=== PATIENT | female | born 1935 | race Caucasian/White ===

== ENCOUNTER 2025-09-02 13:18 | Emergency (ER) | payer MEDICARE, OTHER, SELFPAY ==
[2025-09-02 13:40] VITALS: BP 142/57; PULSE 94; RESP 16; TEMP 36.8; O2SAT 97
[2025-09-02 14:09] LABS: EDCOVIDSCREEN Negative (Negative); EDINFLUASCREEN Negative (Negative); EDINFLUBSCREEN Negative (Negative)
--- NOTE | 2025-09-02 14:18 | ED_ITS ---
HPI - URI/Sore Throat General Chief Complaint: Upper Respiratory Infection Stated Complaint: teary eyes, sinus Time Seen by Provider: 09/02/25 14:19 Source: patient Mode of arrival: ambulatory Limitations: no limitations History of Present Illness HPI Narrative: 89 yo F presents with c/o nasal congestion, sinus pain/pressure, fatigue for 1 wk. L eye erythematous and draining for 3 days. Afebrile. All systems reviewed and negative except as noted above. Related Data Home Medications ?Medication ?Instructions ?Recorded ?Confirmed ?Last Taken ?Type chlorthalidone 25 mg tablet mg 09/02/25 Unknown Histo ry evolocumab 140 mg/mL subcutaneous mg subcut 09/02/25 Unknown History pen injector (Repatha SureClick) ipratropium bromide 21 mcg (0.03 intranasal 09/02/25 Unknown History %) nasal spray levothyroxine 50 mcg tablet mcg 09/02/25 Unknown Hist ory lisinopril 40 mg tablet mg 09/02/25 Unknown History Allergies Allergy/AdvReac Type Severity Reaction Status Date / Time Sulfa (Sulfonamide Allergy Intermediate Hives Verified 09/02/25 13:43 Antibiotics) [facility] Comments At time of signature, agree with nursing past medical, surgical, social and family history. There is no relevant family history pertinent to the presenting complaint. Exam Narrative: GENERAL: This is a well-nourished, well-developed patient, in no apparent distress. HEAD: normocephalic, atraumatic. EYES: PERRL. left sclera and conjunctiva erythematous, purulent drainage noted. Right normal. Vision is grossly intact. EARS: External ears normal, auditory canals clear and without drainage, TMs normal without perforation. Hearing grossly intact. NOSE: External nose normal with purulent nasal drainage, erythema and swelling to nares, maxillary sinus tenderness on palpation THROAT: Mucous membranes moist, Erythematous with clear nasal drainage NECK: Neck supple, non-tender without lymphadenopathy, masses or thyromegaly. CARDIOVASCULAR: Regular rate and rhythm without murmurs, gallops, or rubs. RESPIRATORY: Clear to auscultation. Breath sounds equal bilaterally. No wheezes, rales, or rhonchi. SKIN: warm, Dry, intact with no suspicious lesions or rash, good texture and turgor. NEURO: awake, alert, and oriented to person, place and time. There were no obvious focal neurologic abnormalities. EXTREMITIES: No joint tenderness, effusion, or edema noted. Course Course Level of Care: Express Care Visit Vital Signs Vital signs: Vital Signs Temperature 36.8 C 09/02/25 13:40 Pulse Rate 94 09/02/25 13:40 Respiratory Rate 16 09/02/25 13:40 Blood Pressure 142/57 H 09/02/25 13:40 Pulse Oximetry 97 09/02/25 13:40 Temperature 36.8 C 09/02/25 13:40 Pulse Rate 94 09/02/25 13:40 Respiratory Rate 16 09/02/25 13:40 Blood Pressure 142/57 H 09/02/25 13:40 Pulse Oximetry 97 09/02/25 13:40 Reviewed MDM MDM Narrative Medical decision making narrative: will treat patient for bacterial sinusitis due to duration of symptoms and exam findings. Patient is alert, nontoxic. Differential Diagnosis Differential Diagnosis: Differential diagnostic considerations for upper respiratory infection include upper respiratory infection, croup, otitis media, sinusitis, viral infection, bronchitis, influenza, pharyngitis, strep, uvulitis.? Lab Data Labs: Lab Results 09/02/25 Range/Units 14:05 POC Influenza A Ag Negative (Negative) POC Influenza B Ag Negative (Negative) POC SARS CoV-2 Ag Negative (Negative) Discharge Plan Discharge Clinical Impression: Acute bacterial sinusitis, Acute bacterial conjunctivitis of left eye Patient Disposition: Home Condition: Stable Instructions: Antibiotic Form, Sinusitis (ED) Additional Instructions: take antibiotic as prescribed until gone. Start [id number] Flonase and use as directed on packaging. Wash hands before and after placing eyedrops. Follow-up with your primary care physician if symptoms are not improving. Patient Language: Guatemalan Prescriptions: New doxycycline hyclate 100 mg capsule 100 mg PO BID 7 Days Qty: 14 0RF ofloxacin 0.3 % drops See Rx Instructions EACH EYE .COMPLEX Qty: 5 0RF Rx Instructions: put 1 drop into affected eye(s) every 4 hr x 2 days, then 1 drop 4 times a day for 7 days No Action chlorthalidone 25 mg tablet levothyroxine 50 mcg tablet lisinopril 40 mg tablet ipratropium bromide 21 mcg (0.03 %) spray,non-aerosol INTRANASAL Repatha SureClick 140 mg/mL pen injector SUBCUT Follow-up/Referrals: PHYSICIAN,ELECTRIC POWER MACHINE OPERATOR [Primary Care Provider, Internal Medicine] Time of Disposition: 14:25
== END 2025-09-02 14:33 | disposition home or self-care (01) ==
PROVIDERS: Emergency Provider Nurse Practitioner Family
DX: J01.90 Acute sinusitis, unspecified (principal); B96.89 Other specified bacterial agents as the cause of diseases classified elsewhere; Z20.822 Contact with and (suspected) exposure to COVID-19
CPT/HCPCS: 87426; 87804; 99213; G0463